=== PATIENT | male | born 1995 | race Caucasian/White ===

== ENCOUNTER → 2022-01-04 15:00 | Outpatient (CLI) | payer OTHER, SELFPAY ==
--- NOTE | ~2022-01-04 | XR_ITS ---
XR femur LT min 2V DATE: 01/04/2022 15:38 INDICATION: Generalized pain with walking. No injury. TECHNIQUE: AP and lateral views of left femur COMPARISON: None FINDINGS: No fracture or dislocation, periosteal reaction or bone destruction. Normal alignment at th e hip and knee joints. IMPRESSION: Negative Reviewed, dictated and finalized at location B. IMPRESSION: Negative
--- NOTE | ~2022-01-04 | XR_ITS ---
XR lumbar spine 2-3V DATE: 01/04/2022 15:37 INDICATION: Generalized back pain with walking. No injury. TECHNIQUE: AP, lateral, coned lateral lumbosacral views COMPARISON: None FINDINGS: Normal alignment of the lumbar spine with slight levoscoliosis, loss of lumbar lordosis. The included lower thoracic and lumbar pedicles are intact. No fracture or bone destruction is eviden t. No spondylolisthesis. Lumbar and lumbosacral interspaces are relatively preserved. The sacroiliac joints are intact. IMPRESSION: Slight levoscoliosis Loss of lumbar lordosis Reviewed, dictated and finalized at location B.
--- NOTE | ~2022-01-04 | XR_ITS ---
XR hip BI 2V w AP pelvis DATE: 01/04/2022 15:39 INDICATION: Generalized pain when walking TECHNIQUE: AP pelvis. AP and lateral views of each hip. COMPARISON: None FINDINGS: The pubic symphysis and sacroiliac joints are normally aligned. Hip joint spaces are symmet ralf and relatively preserved. No pelvic fracture or bone destruction. No fracture or dislocation, ethan scular necrosis or bone destruction of either hip. IMPRESSION: No significant abnormality Reviewed, dictated and finalized at location B. IMPRESSION: No significant abnormality
--- NOTE | ~2022-01-04 | XR_ITS ---
XR femur RT min 2V DATE: 01/04/2022 15:38 INDICATION: Generalized right leg pain when walking TECHNIQUE: AP and lateral views of right femur COMPARISON: None FINDINGS: No fracture or dislocation, avascular necrosis or bone destruction. No periosteal reaction or bone destruction. IMPRESSION: Negative Reviewed, dictated and finalized at location B. IMPRESSION: Negative
== END ==
PROVIDERS: PCP Emergency Medicine; Visit Provider Emergency Medicine
DX: Z00.00 Encounter for general adult medical examination without abnormal findings (principal)
CPT/HCPCS: 72100; 73521; 73552